=== PATIENT | female | born 1965 | race Caucasian/White ===

== ENCOUNTER 2016-08-17 14:36 | Observation (INO) | payer OTHER ==
[2016-08-17] MEDS ORDERED: HEPARIN 1000 UNIT/1 ML MDV ONE (15:24)
[2016-08-17] MEDS ORDERED: BUPIVACAINE 0.5% 30 ML SDV ONE (15:24)
[2016-08-17] MEDS ORDERED: ceFAZolin 1 GM/5 ML SYR ONE (15:25)
[2016-08-17] MEDS ORDERED: ACETAMINOPHEN 325 MG TAB PO PRN (15:38)
[2016-08-17] MEDS ORDERED: HYDROCODONE/APAP 5/325 TAB PO PRN (15:38)
[2016-08-17] MEDS ORDERED: D5W 1/2 NS W/ 20 KCl/L 1,000 ML IV SCH ×2 (15:45→22:00)
[2016-08-17] MEDS: HYDROmorphONE/DILAUDID 1 MG/ML SYR IVP PRN (16:36)
--- NOTE | 2016-08-17 16:40 | GHP ---
[f rep st] HISTORY AND PHYSICAL DATE OF ADMISSION: 08/17/2016 The patient is a 51-year-old female who was seen in our office last month with intermittent right upp er quadrant pain and diagnosed with cholelithiasis, who returns to our office reporting 4-5 days of w orsening pain, especially today she rates the pain 8/10 worse with deep inspiration. She last had so mething to eat at 10:30 this morning, pot pie. She has had a decreased appetite over the last few da ys. She has had a subjective fever that she reports of approximately 100 degrees Fahrenheit. ALLERGIES: Tolectin. PAST MEDICAL HISTORY: Chronic shoulder and knee pain, depression, hypertension, endometriosis, uteri ne fibroids and polyps. PAST SURGICAL HISTORY: Appendectomy, hysterectomy, exploratory laparoscopy for endometriosis, oophor ectomy. MEDICATIONS: Maxalt, Norvasc, hydrochlorothiazide, carvedilol, tramadol, Restasis, diclofenac, Wellb utrin, Voltaren gel. REVIEW OF SYSTEMS: She had a negative 10-point review of systems, please see HPI for pertinent negat tila and positives. PHYSICAL EXAM: GENERAL: The patient is a female who appears mildly uncomfortable, not jaundiced. H EAD AND NECK: Normocephalic, atraumatic. CHEST: CTA bilaterally. HEART: Regular rhythm rate. AB DOMEN: Nondistended, positive Gonzales sign. Negative rebound. Bowel sounds upon auscultation. EXTR EMITIES: No lower extremity edema. RADIOLOGY: Ultrasound from [facility] demonstrate cholelithiasis. IMPRESSION: A 51-year-old female with a history of cholelithiasis now presenting with signs and symp toms consistent with cholecystitis. RECOMMENDATION: Laparoscopic cholecystectomy was discussed with the patient in detail and patient wi ll be directly admitted to the hospital given her degree of pain. She will undergo a laparoscopic ch olecystectomy later this evening. Risks reviewed include, but not limited to, common bile duct injur y, infection, nerve injury, conversion to open procedure. The patient was given an orders form and c onsent for her to carry over to the hospital. Dr. Tom has seen and examined the patient in the off ice. /[id number]/MODL
[2016-08-17] MEDS ORDERED: MIDAZOLAM 2 MG/2 ML VIAL ONE (18:15)
[2016-08-17 18:26] LABS: % IMMATURE GRANULYOCYTES 0.3 % (0.0-1.1); ABSOLUTE IMMATURE GRANULOCYTES 0.02 10^3/uL (0.00-0.10); ADD DIFF? NO; ADD MORPH? NO; ADD SCAN? NO; ATYPICAL LYMPHOCYTE FLAG 0 (0-99); FRAGMENT RBC FLAG 0 (0-99); HEMATOCRIT 41.9 % (38.0-47.0); HEMOGLOBIN 13.9 g/dL (12.6-16.3); LEFT SHIFT FLG 0 (0-99); LIPEMIA HEMOLYSIS FLAG 80 (0-99); MEAN CELL HEMOGLOBIN 28.4 pg (27.9-34.1); MEAN CELL HEMOGLOBIN CONCENTR. 33.2 g/dL (32.4-36.7); MEAN CELL VOLUME 85.7 fL (81.5-99.8); MEAN PLATELET VOLUME 9.9 fL (8.7-11.7); PLATELET CLUMPS FLAG 0 (0-99); PLATELET COUNT 253 10^3/uL (150-400); RED BLOOD CELL COUNT 4.89 10^6/uL (4.18-5.33); RED CELL DISTRIBUTION WIDTH 13.5 % (11.5-15.2)
[2016-08-17 18:28] LABS: BILIRUBIN,TOTAL 0.6 mg/dL (0.1-1.4); BILIRUBIN-CONJUGATED 0.5 mg/dL (0.0-0.5); BILIRUBIN-UNCONJUGATED 0.1 mg/dL (0.0-1.1)
[2016-08-17] MEDS ORDERED: PROPOFOL/EMULSION 500 MG/50 ML BOTTLE IV ONE (18:31)
[2016-08-17] MEDS ORDERED: fentaNYL 250 MCG/5 ML INJ ONE (18:31)
[2016-08-17] MEDS ORDERED: SUGAMMADEX SODIUM 200 MG/2 ML VIAL IVP ONE (19:21)
[2016-08-17] MEDS ORDERED: LABETALOL HCL 5 MG/ML 20 ML MDV ONE ×2 (19:21)
[2016-08-17] MEDS ORDERED: KETOROLAC 30 MG/1 ML SDV ONE (19:58)
[2016-08-17] MEDS ORDERED: fentaNYL 100 MCG/2 ML INJ ONE ×2 (20:13→21:11)
--- NOTE | 2016-08-17 21:52 | POSTOPPROG ---
Post Op Note Date of Operation: 08/17/16 Surgeon: Jacinto Tom Anesthesiologist: SEVERIANO Anesthesia: GET(General Endotracheal) Pre-op Diagnosis: ACUTE CHOLECYSTITIS Post-op Diagnosis: SAME Indication: PAIN Procedure: LAP ANGELI Findings: LARGE STONES WITH ONE IMPACTED AT NECK Inf/Abcess present in the surg proc area at time of surgery?: Yes Depth: Organ Space EBL: Minimal Complications: 0 Specimen(s): GALLBLADDER
[2016-08-17] MEDS: ONDANSETRON 4 MG/2 ML VIAL IVP PRN (22:11)
[2016-08-18] MEDS: HYDROmorphONE/DILAUDID 1 MG/ML SYR IVP PRN (00:27)
[2016-08-18] MEDS: KETOROLAC 15 MG/1 ML SDV IVP SCH ×4 (01:42→14:15)
[2016-08-18] MEDS: ONDANSETRON 4 MG/2 ML VIAL IVP PRN ×2 (01:57→10:42)
[2016-08-18] MEDS: OXYCODONE/APAP 5/325 TAB PO PRN ×4 (01:58→14:14)
[2016-08-18 06:04] LABS: ALBUMIN 3.6 g/dL (3.5-5.0); BILIRUBIN,TOTAL 0.6 mg/dL (0.1-1.4); BILIRUBIN-CONJUGATED 0.4 mg/dL (0.0-0.5); BILIRUBIN-UNCONJUGATED 0.2 mg/dL (0.0-1.1); TOTAL PROTEIN 6.4 g/dL (6.3-8.2)
[2016-08-18 06:12] LABS: % IMMATURE GRANULYOCYTES 0.6 % (0.0-1.1); ABSOLUTE IMMATURE GRANULOCYTES 0.06 10^3/uL (0.00-0.10); ADD DIFF? NO; ADD MORPH? NO; ADD SCAN? NO; ATYPICAL LYMPHOCYTE FLAG 0 (0-99); FRAGMENT RBC FLAG 0 (0-99); HEMATOCRIT 40.8 % (38.0-47.0); HEMOGLOBIN 13.5 g/dL (12.6-16.3); LEFT SHIFT FLG 0 (0-99); LIPEMIA HEMOLYSIS FLAG 80 (0-99); MEAN CELL HEMOGLOBIN 29.2 pg (27.9-34.1); MEAN CELL HEMOGLOBIN CONCENTR. 33.1 g/dL (32.4-36.7); MEAN CELL VOLUME 88.1 fL (81.5-99.8); MEAN PLATELET VOLUME 10.2 fL (8.7-11.7); PLATELET CLUMPS FLAG 40 (0-99); PLATELET COUNT 238 10^3/uL (150-400); RED BLOOD CELL COUNT 4.63 10^6/uL (4.18-5.33); RED CELL DISTRIBUTION WIDTH 13.5 % (11.5-15.2)
[2016-08-18] MEDS ORDERED: ERTAPENEM 1 GM in NS 100 ML IV SCH (09:00)
--- NOTE | 2016-08-18 09:33 | SOAPPROG ---
SOAP Progress Note Assessment/Plan: Assessment: 51yo F POD#1 s/p lap kathy for acute calculous cholecystis Pain controlled Clear liquid diet, advance as tolerated Minimal flatus Likely home later today or tomorrow morning Seen with Dr. Tom S: Feeling better this morning, abdomen is sore. Burping but no flatus. O: Lying in bed, comfortable, NAD No increased work of breathing Positive bowel sounds, soft, distended, tender around incisions, incisions CDI Objective: Vital Signs Temp Pulse Resp BP Pulse Ox 36.6 C 80 17 117/65 95 08/18/16 07:56 08/18/16 07:56 08/18/16 05:00 08/18/16 07:56 08/18/16 07:56 Laboratory Results 08/18/16 05:40 08/17/16 08/18/16 08/19/16 05:59 05:59 05:59 Intake Total 1650 1000 Output Total 210 450 Balance 1440 550 ICD10 Worksheet Patient Problems: Problems Problem Status Diagnosed Acute calculous cholecystitis Acute - ICD10 Problem Qualifiers (1) Acute calculous cholecystitis
[2016-08-18 10:26] VITALS: RESP 18
--- NOTE | 2016-08-18 10:46 | GOP ---
[f rep st] OPERATIVE REPORT DATE OF OPERATION: 08/17/2016 SURGEON: Jacinto Tom MD ANESTHESIA: There was no per diem physical therapist assistant. ANESTHESIOLOGIST: Josh Brower MD. PREOPERATIVE DIAGNOSIS: Acute cholecystitis and cholelithiasis. POSTOPERATIVE DIAGNOSIS: Acute cholecystitis and cholelithiasis. PROCEDURE PERFORMED: Laparoscopic cholecystectomy. FINDINGS: Patient has a distended gallbladder with multiple large stones and 1 stone impacted in the neck of the gallbladder. It was not overly inflamed. DESCRIPTION OF PROCEDURE: Patient was taken to the operating room, received satisfactory general end otracheal anesthesia by Dr. Brower, placed in supine position, prepped and draped in the usual joselin rile fashion. A periumbilical incision was made. A Veress needle was inserted. Pneumoperitoneum wa s established. Trocar was introduced. Laparoscope introduced. Good visualization was obtained. Th ree other trocars were placed in the upper abdomen under direct vision. Gallbladder was elevated up. Adhesions were taken down. Cystic triangle was carefully exposed. The cystic duct and cystic amada ry were isolated. Good clear view was obtained. Both structures were multiply hemoclipped and divid ed. Perineum of the gallbladder was incised. The gallbladder was dissected free from the bed and he patic fossa and extracted through the upper midline port site. It was a difficult dissection because of the size of multiple stones requiring some enlargement of the original trocar site. Gallbladder and large stones were delivered out of that site. Wound was irrigated. Hemostasis was assured. Tro cars were removed under direct vision. Trocar sites were closed with 0 Vicryl for the fascia and a 4 -0 Monocryl subcuticular stitch for the skin. All layers were infiltrated with 0.5% Marcaine. Steven ated procedure well, taken to recovery room in good condition. There were no complications. /[id number]/MODL
--- NOTE | 2016-08-18 14:23 | GOP ---
[f rep st] OPERATIVE REPORT DATE OF OPERATION: 08/17/2016 SURGEON: Jacinto Tom MD LEAD NETWORK ARCHITECT: None. ANESTHESIOLOGIST: Josh Brower MD PREOPERATIVE DIAGNOSIS: Acute cholecystitis and cholelithiasis. POSTOPERATIVE DIAGNOSIS: Acute cholecystitis and cholelithiasis. PROCEDURE PERFORMED: FINDINGS: Patient was found to have a distended gallbladder with multiple large stones, and a stone impacted near the neck of the gallbladder. Gallbladder wall was thickened, but not overly inflamed. Ducts were small. ESTIMATED BLOOD LOSS: Negligible. DESCRIPTION OF PROCEDURE: Patient taken to the operating room, where she received satisfactory general endotracheal anesthesia by Dr. Brower. Placed in supine position, prepped and draped in the usual sterile fashion. A periumbilical incision was made. A Veress needle inserted. Pneumoperitoneum was established. A trocar was introduced. Laparoscope introduced. Good visualization was obtained. Three other trocars were placed in the upper abdomen under direct vision. The gallbladder was elevated up. It was quite long and distended. The cystic triangle was carefully dissected free. The cystic duct was isolated, multiply hemoclipped and divided, as was the cystic artery. Good clear view had been obtained, and much care to avoid injury to the common bile duct, which was clearly visible. Peritoneum of the gallbladder was divided, and the gallbladder was dissected free from the base of the hepatic fossa, and then extracted through the upper midline port site. The wound was irrigated. Hemostasis was assured. Trocars were removed under direct vision. Trocar sites were closed with 0 Vicryl for the fascia, 4-0 Monocryl subcuticular stitch for the skin. All layers infiltrated with 0.5% Marcaine. PROCEDURE: Laparoscopic cholecystectomy. DISPOSITION: She was taken to the recovery room in good condition. /[id number]/MODL MTDD
[2016-08-18 14:35] VITALS: BP 131/78; PULSE 79; TEMP 98.4; O2SAT 90
== END 2016-08-18 14:54 | disposition home or self-care (01) ==
LOC: F3E 15:09 → FOB 16:06
PROVIDERS: ADMIT Surgery; ATTEND Surgery
PROC: 0FT44ZZ Resection of Gallbladder, Percutaneous Endoscopic Approach (ICD-10-PCS; principal; 2016-08-17 18:30)
DX: K80.01 Calculus of gallbladder with acute cholecystitis with obstruction (principal); G89.29 Other chronic pain; F32.9 Major depressive disorder, single episode, unspecified; I10 Essential (primary) hypertension; E66.01 Morbid (severe) obesity due to excess calories
CPT/HCPCS: 47562; G0378; J1170; J1335; J1885; J2250; J2405; J2704; J3010; J3490

== ENCOUNTER → 2017-05-01 | Outpatient (CLI) | payer OTHER | LOC: FIMAGING 07:53 | PROVIDERS: ATTEND Physician Assistant | CPT/HCPCS: 78264; A9541 ==